=== PATIENT | male | born 2000 ===

== ENCOUNTER 2018-02-24 16:18 | Emergency (ER) | payer BC ==
[2018-02-24 16:45] VITALS: BP 130/57
--- NOTE | 2018-02-24 16:47 | UC ---
Complaint Female HPI - HPI Summary HPI Summary: Pt presents with recent unprotected sex to a new female partner. He is requesting STD testing. Currently has no symptoms and does not believe his partner has or had any STD. - History Of Current Complaint Chief Complaint: UCSTDScreening Stated Complaint: PERSONAL TESTING Time Seen by Provider: 02/24/18 16:46 Hx Obtained From: Patient Severity Currently: None Pain Intensity: 0 - Allergies/Home Medications Allergies/Adverse Reactions: Allergies Allergy/AdvReac Type Severity Reaction Status Date / Time No Known Allergies Allergy Verified 02/24/18 16:39 PMH/Surg Hx/FS Hx/Imm Hx - Additional Past Medical History Additional PMH: None Previously Healthy: Yes - Surgical History Surgical History: None Surgery Procedure, Year, and Place: Denies - Family History Known Family History: Positive: None - Social History Occupation: Student Lives: With Family Alcohol Use: None Substance Use Type: None Smoking Status (MU): Never Smoked Tobacco - Immunization History Most Recent Influenza Vaccination: Not UTD Review of Systems Constitutional: Negative Skin: Negative Respiratory: Negative Cardiovascular: Negative Gastrointestinal: Negative Genitourinary: Negative Neurovascular: Negative Musculoskeletal: Negative Neurological: Negative Psychological: Negative All Other Systems Reviewed And Are Negative: Yes Physical Exam - Summary Physical Exam Summary: GENERAL: NAD. WDWN. No pain distress. SKIN: No rashes, sores, ulcers, masses, lesions. NECK: Supple. Nontender. No lymphadenopathy. CHEST: CTAB. No r/r/w. No accessory muscle use. Breathing comfortably and in no distress. CV: RRR. Without m/r/g. Pulses intact. Brisk cap refill. NEURO: Alert. CN II-XII grossly intact. PSYCH: Age appropriate behavior. Declined exam as he has no symptoms. Triage Information Reviewed: Yes Vital Signs: Initial Vital Signs Temp 98.8 F 02/24/18 16:39 Pulse 61 02/24/18 16:39 Resp 16 02/24/18 16:39 BP 130/57 02/24/18 16:39 Pulse Ox 98 02/24/18 16:39 Complaint Female Dx - Course Course Of Treatment: HIV and GC/Chlamydia testing today. Will call with results - Differential Dx/Diagnosis Provider Diagnoses: Unprotected sex Discharge - Sign-Out/Discharge Documenting (check all that apply): Discharge - Discharge Plan Condition: Stable Disposition: HOME Patient Education Materials: Safe Sex (ED) Referrals: No Primary Care Phys,NOPCP [Primary Care Provider] - Additional Instructions: If you develop a fever, shortness of breath, chest pain, new or worsening symptoms - please call your PCP or go to the ED. 1) We will call you later this week with results of your tests. If you have not heard from us by the end of the week - please feel free to call us. - Billing Disposition and Condition Condition: STABLE Disposition: HOME
== END 2018-02-24 17:12 | disposition home or self-care (01) ==
LOC: UCEAST 16:18
DX: Z11.3 Encounter for screening for infections with a predominantly sexual mode of transmission (principal)
CPT/HCPCS: 36415; 81003; 86703; 87491; 87591; 99211; G0463

== ENCOUNTER 2018-03-07 12:14 | Emergency (ER) | payer BC ==
[2018-03-07 12:48] VITALS: BP 110/57
--- NOTE | 2018-03-07 13:47 | UC ---
UC General HPI - HPI Summary HPI Summary: Patient has had positive mono exposure, wants to be checked. Denies any symptoms - History of Current Complaint Hx Obtained From: Patient Current Severity: None Pain Intensity: 0 <Jamie Demarco - Last Filed: 03/07/18 21:35> <Manuela Marinelli - Last Filed: 03/08/18 05:04> - History of Current Complaint Chief Complaint: UCGeneralIllness Stated Complaint: REQUESTING LAB WORK Time Seen by Provider: 03/07/18 13:39 - Allergy/Home Medications Allergies/Adverse Reactions: Allergies Allergy/AdvReac Type Severity Reaction Status Date / Time No Known Allergies Allergy Verified 03/07/18 12:48 PMH/Surg Hx/FS Hx/Imm Hx - Surgical History Surgical History: None Surgery Procedure, Year, and Place: Denies - Family History Known Family History: Positive: None - Social History Alcohol Use: None Substance Use Type: None Smoking Status (MU): Never Smoked Tobacco - Immunization History Most Recent Influenza Vaccination: Not UTD Most Recent Tetanus Shot: UTD <Jamie Demarco - Last Filed: 03/07/18 21:35> Review of Systems Constitutional: Negative Skin: Negative Eyes: Negative ENT: Negative Respiratory: Negative Cardiovascular: Negative Gastrointestinal: Negative Genitourinary: Negative Motor: Negative Neurovascular: Negative Musculoskeletal: Negative Neurological: Negative Psychological: Negative All Other Systems Reviewed And Are Negative: Yes <Jamie Demarco - Last Filed: 03/07/18 21:35> Physical Exam Triage Information Reviewed: Yes Appearance: Well-Appearing Vital Signs: Initial Vital Signs Temp 98.7 F 03/07/18 12:45 Pulse 57 03/07/18 12:45 Resp 03/07/18 12:45 BP 110/57 03/07/18 12:45 Pulse Ox 99 03/07/18 12:45 Vital Signs Reviewed: Yes Eye Exam: Normal ENT Exam: Normal Neck exam: Normal Respiratory Exam: Normal Cardiovascular Exam: Normal Abdominal Exam: Normal Neurological Exam: Normal Psychological Exam: Normal Skin Exam: Normal <Jamie Demarco - Last Filed: 03/07/18 21:35> Vital Signs: Initial Vital Signs Temp 98.7 F 03/07/18 12:45 Pulse 57 03/07/18 12:45 Resp 03/07/18 12:45 BP 110/57 03/07/18 12:45 Pulse Ox 99 03/07/18 12:45 <Manuela Marinelli - Last Filed: 03/08/18 05:04> Course/Dx - Differential Dx - Multi-Symptom Provider Diagnoses: blood work. mono exposure <Jamie Demarco - Last Filed: 03/07/18 21:35> Discharge - Sign-Out/Discharge Documenting (check all that apply): Discharge/Admit/Transfer - Billing Disposition and Condition Condition: STABLE Disposition: HOME <Jamie Demarco - Last Filed: 03/07/18 21:35> - Billing Disposition and Condition Condition: STABLE Disposition: HOME <Manuela Marinelli - Last Filed: 03/08/18 05:04> - Discharge Plan Condition: Stable Disposition: HOME Patient Education Materials: Mononucleosis (ED) Referrals: No Primary Care Phys,NOPCP [Primary Care Provider] - Attestation Statement User Type: Provider - I was available for consult. This patient was seen by the [facility]. The patient was not presented to, seen by, or examined by me. -Rosalba <Manuela Marinelli - Last Filed: 03/08/18 05:04>
== END 2018-03-07 13:55 | disposition home or self-care (01) ==
LOC: UCEAST 12:14
DX: Z20.828 Contact with and (suspected) exposure to other viral communicable diseases (principal)
CPT/HCPCS: 36415; 86308; 99211; G0463